=== PATIENT | female | born 1945 | race Caucasian/White ===

== ENCOUNTER 2016-10-13 09:00 | Emergency (ER) | payer BC, MEDICARE ==
[~2016-10-13] VITALS: Ht 165.1 cm; Wt 100.0 kg
[~2016-10-13 09:00] MED LIST: ALBU8I INH; CEFU250T PO; METH4PAK PO; ZOLO25TA PO
[2016-10-13 09:05] VITALS: BP 186/100; PULSE 71; RESP 16; TEMP 98.4; O2SAT 99
[2016-10-13] MEDS ORDERED: NEXI20CA PO (10:30)
[2016-10-13] MEDS ORDERED: SYNT88TA PO (10:30)
[2016-10-13] MEDS ORDERED: AMOX875T2 PO (10:31)
--- NOTE | 2016-10-13 11:08 | PD ---
HPI Chief Complaint: Oral / Dental Pain or Problem Time Seen by Provider: 10:46 Travel History International Travel<30 days: No Contact w/Intl Traveler<30days: No Traveled to known affect area: No History of Present Illness HPI 70-year-old female complains of a sided facial pain and neck pain. Patient states that the symptoms started about 2 weeks ago. Patient was seen by personal physician and with diagnosis with sinus infection and blocked salivary gland duct. Patient was given prescription for Augmentin. Patient states that she had GI symptoms while taking Augmentin however she finished the Augmentin as directed. Patient states that she had persistent symptoms despite the medication. Patient states that she has intermittent fever for the past 3 weeks. Patient states that she has intermittent dysphagia especially in the morning. Patient denies any headache. Patient denies any nausea vomiting. Patient denies any chest pain or shortness of breath. Patient denies abdominal pain. PFSH Past Medical History Diabetes: No GERD: Yes Thyroid Disease: Yes Tetanus Vaccination: > 5 Years Influenza Vaccination: Yes Menopausal: Yes Past Surgical History Cholecystectomy: Yes Hysterectomy: Yes Tonsillectomy: Yes Social History Alcohol Use: No Tobacco Use: No Substance Use: No Allergies-Medications (Allergen,Severity, Reaction): Coded Allergies: Sulfa (Sulfonamide Antibiotics) (Unverified Allergy, Mild, 10/13/16) Reported Meds & Prescriptions Reported Meds & Active Scripts Active Reported Amoxicillin-Clavulanate 875-125 mg Tab 875 Mg PO BID not for use in CrCl <30 mL/minute Synthroid (Levothyroxine Sodium) 88 Mcg Tab 88 Mcg PO DAILY Nexium (Esomeprazole DR) 20 Mg Capdr 20 Mg PO DAILY Review of Systems General / Constitutional: No: Fever Eyes: No: Visual changes HENT: No: Headaches Cardiovascular: No: Chest Pain or Discomfort Respiratory: No: Shortness of Breath Gastrointestinal: Positive: Dysphagia, No: Abdominal Pain Genitourinary: No: Dysuria Musculoskeletal: No: Pain Skin: No Rash Neurologic: No: Weakness Psychiatric: No: Depression Endocrine: No: Polydipsia Hematologic/Lymphatic: No: Easy Bruising Physical Exam Narrative GENERAL: Well-nourished, well-developed patient. SKIN: Focused skin assessment warm/dry. HEAD: Normocephalic. EYES: No scleral icterus. No injection or drainage. NECK: Supple, trachea midline. Patient has mild to moderate tenderness on palpation right submandibular area and right anterior neck area. CARDIOVASCULAR: Regular rate and rhythm without murmurs, gallops, or rubs. RESPIRATORY: Breath sounds equal bilaterally. No accessory muscle use. GASTROINTESTINAL: Abdomen soft, non-tender, nondistended. MUSCULOSKELETAL: No cyanosis, or edema. BACK: Nontender without obvious deformity. No CVA tenderness. Neurologic exam normal. Data Data Last Documented VS Vital Signs Date Time Temp Pulse Resp B/P (MAP) Pulse Ox O2 Delivery O2 Flow Rate FiO2 10/13/16 10:23 70 18 10/13/16 09:05 98.4 186/100 (128) 99 Orders Orders Complete Blood Count With Diff (10/13/16 10:54) Comprehensive Metabolic Panel (10/13/16 10:54) Prothrombin Time / Inr (Pt) (10/13/16 10:54) Act Partial Throm Time (Ptt) (10/13/16 10:54) Iv Access Insert/Monitor (10/13/16 10:54) Ecg Monitoring (10/13/16 10:54) Oximetry (10/13/16 10:54) Ct Soft Tiss Neck W Iv Cont (10/13/16 10:54) Iohexol 350 Inj (Omnipaque 350 Inj) (10/13/16 12:32) Labs Laboratory Tests Test 10/13/16 11:00 White Blood Count 10.6 TH/MM3 Red Blood Count 4.73 MIL/MM3 Hemoglobin 14.5 GM/DL Hematocrit 42.3 % Mean Corpuscular Volume 89.5 FL Mean Corpuscular Hemoglobin 30.6 PG Mean Corpuscular Hemoglobin Concent 34.2 % Red Cell Distribution Width 13.3 % Platelet Count 330 TH/MM3 Mean Platelet Volume 8.1 FL Neutrophils (%) (Auto) 60.4 % Lymphocytes (%) (Auto) 29.1 % Monocytes (%) (Auto) 8.9 % Eosinophils (%) (Auto) 0.8 % Basophils (%) (Auto) 0.8 % Neutrophils # (Auto) 6.4 TH/MM3 Lymphocytes # (Auto) 3.1 TH/MM3 Monocytes # (Auto) 0.9 TH/MM3 Eosinophils # (Auto) 0.1 TH/MM3 Basophils # (Auto) 0.1 TH/MM3 CBC Comment DIFF FINAL Differential Comment Prothrombin Time 10.4 SEC Prothromb Time International Ratio 0.9 RATIO Activated Partial Thromboplast Time 25.3 SEC Blood Urea Nitrogen 10 MG/DL Creatinine 0.74 MG/DL Random Glucose 106 MG/DL Total Protein 7.7 GM/DL Albumin 3.4 GM/DL Calcium Level 9.0 MG/DL Alkaline Phosphatase 117 U/L Aspartate Amino Transf (AST/SGOT) 17 U/L Alanine Aminotransferase (ALT/SGPT) 32 U/L Total Bilirubin 0.5 MG/DL Sodium Level 138 MEQ/L Potassium Level 4.1 MEQ/L Chloride Level 101 MEQ/L Carbon Dioxide Level 29.0 MEQ/L Anion Gap 8 MEQ/L Estimat Glomerular Filtration Rate 78 ML/MIN MDM Medical Decision Making Medical Screen Exam Complete: Yes Emergency Medical Condition: Yes Interpretation(s) Last Impressions Neck CT 10/13/16 1054 Signed Impressions: Service Date/Time: Thursday, October 13, 2016 12:28 - CONCLUSION: Salivary glands inclusive of the parotids and submandibular submaxillary glands are normal. No evidence of stones. Nonspecific lymph nodes measuring up to 1.3 and 1.7 cm in the submandibular region bilaterally . 1.8 cm nodule left lobe of the thyroid which can be evaluated and worked up on an outpatient elective basis Ponce Tatum MD 13:12 PM. CBC within normal limit. CMP within normal limit. Differential Diagnosis Differential diagnosis including parotitis, cellulitis, abscess. Narrative Course 70-year-old female with pain and swelling of the right submandibular and right- sided neck. Diagnosis Primary Impression: Lymphadenitis Patient Instructions: General Instructions Additional Instructions: Follow-up with personal physician or ENT if persistent problem. Return if worse. Med/Other Pt SpecificInfo: No Change to Meds Disposition: 01 DISCHARGE HOME Condition: Stable Raj Horton MD Oct 13, 2016 11:08
[2016-10-13 11:11] LABS: AUTOMATED NEUTROPHIL # 6.4 TH/MM3 (1.8-7.7); BASOPHIL # 0.1 TH/MM3 (0-0.2); BASOPHIL % 0.8 % (0.0-2.0); EOSINOPHIL # 0.1 TH/MM3 (0-0.4); EOSINOPHIL % 0.8 % (0.0-4.0); HEMATOCRIT 42.3 % (35.0-46.0); HEMO FLAGS DIFF FINAL; LYMPH % 29.1 % (9.0-44.0); LYMPHOCYTE # 3.1 TH/MM3 (1.0-4.8); MEAN CELL VOLUME 89.5 FL (80.0-100.0); MEAN CORPUSCULAR HEMOGLOBIN 30.6 PG (27.0-34.0); MEAN CORPUSCULAR HGB CONC 34.2 % (32.0-36.0); MONO % 8.9 % (0.0-8.0); NEUT % 60.4 % (16.0-70.0); PLATELET COUNT 330 TH/MM3 (150-450); RED BLOOD COUNT 4.73 MIL/MM3 (4.00-5.30); RED CELL DISTRIBUTION WIDTH 13.3 % (11.6-17.2); WHITE BLOOD COUNT 10.6 TH/MM3 (4.0-11.0)
[2016-10-13 11:21] LABS: APTT (PATIENT) 25.3 SEC (24.3-30.1); INTERNATIONAL NORMALIZED RATIO 0.9 RATIO; PROTHROMBIN TIME - PATIENT 10.4 SEC (9.8-11.6)
[2016-10-13 11:24] LABS: ALT (GPT) 32 U/L (10-53); ANION GAP 8 MEQ/L (5-15); AST (GOT) 17 U/L (15-37); BLOOD UREA NITROGEN 10 MG/DL (7-18); CHLORIDE 101 MEQ/L (98-107); GLOMERULAR FILTRATION RATE 78 ML/MIN (>89); POTASSIUM 4.1 MEQ/L (3.5-5.1); SODIUM (NA) 138 MEQ/L (136-145)
[2016-10-13 11:27] LABS: ALKALINE PHOSPHATASE 117 U/L (45-117); TOTAL BILIRUBIN ADULT 0.5 MG/DL (0.2-1.0)
[2016-10-13] MEDS ORDERED: IOHEXOL 350 MG/ML 10 ML VIAL (for RAD DIAG) IVCONTRAST ONE (12:32)
--- NOTE | 2016-10-13 12:58 | RADRPT ---
EXAM DATE/TIME: 10/13/2016 12:28 [facility] COMPARISON: No previous studies available for comparison. INDICATIONS : Right sided pain and swelling. Blocked saliva gland. IV CONTRAST: 70 cc Omnipaque 350 (iohexol) IV RADIATION DOSE: 20.75 CTDIvol (mGy) MEDICAL HISTORY : None SURGICAL HISTORY : Hysterectomy. ENCOUNTER: Initial ACUITY: 1 day PAIN SCALE: 5/10 LOCATION: Right neck TECHNIQUE: Volumetric scanning of the neck was performed. Using automated exposure control and adjustment of th e mA and/or kV according to patient size, radiation dose was kept as low as reasonably achievable to obtain optimal diagnostic quality images. DICOM format image data is available electronically for r eview and comparison. FINDINGS: NASOPHARYNX: The nasopharyngeal airway has a normal configuration. No mucosal thickening or mass is seen. OROPHARYNX: The intrinsic muscles of the tongue are symmetric. The tonsillar pillars are intact. The prevertebr al soft tissues are not thickened. LARYNX: The supraglottic, glottic, and infraglottic structures are intact. PARAPHARYNGEAL: The parapharyngeal space is intact. SALIVARY GLANDS: The parotid and submandibular glands are intact. LYMPH NODES: Patient demonstrates multiple upper neck sub-mandibular lymph nodes bilaterally largest on the left 1 .3 and on the right 1.7 cm.. THYROID: Homogeneous enhancement with a 1.8 cm somewhat inhomogeneous round nodule in the left lobe lateral. BONES: Degenerative changes cervical spine CONCLUSION: Salivary glands inclusive of the parotids and submandibular submaxillary glands are n ormal. No evidence of stones. Nonspecific lymph nodes measuring up to 1.3 and 1.7 cm in the submandibular region bilaterally . 1.8 cm nodule left lobe of the thyroid which can be evaluated and worked up on an outpatient elective basis Ponce Tatum MD on October 13, 2016 at 12:49 Board Certified Radiologist. This report was verified electronically.
== END 2016-10-13 13:57 | disposition home or self-care (01) ==
LOC: NEPE 09:00
DX: I88.9 Nonspecific lymphadenitis, unspecified (principal); K21.9 Gastro-esophageal reflux disease without esophagitis; Z79.899 Other long term (current) drug therapy
CPT/HCPCS: 70491; 80053; 85025; 85610; 85730; 99285; Q9967